=== PATIENT | female | born 1960 | race Caucasian/White ===

== ENCOUNTER 2022-07-18 12:11 | Inpatient (IN) | payer BC ==
[~2022-07-18] VITALS: Ht 160 cm; Wt 60.0 kg
[2022-07-18] MEDS ORDERED: normal saline 1000ML IV soln IVB ONE (12:50)
[2022-07-18 13:12] LABS: BASOPHILS % (AUTO) 0.3 % (0-1); EOSINOPHILS % (AUTO) 0.1 % (0-6); HEMATOCRIT 33.1 % (35.0-45.0); HEMOGLOBIN 10.7 g/dl (12.0-16.0); LYMPHOCYTES # (AUTO) 0.5 X10'3 (1.1-4.8); LYMPHOCYTES % (AUTO) 4.6 % (21-51); MEAN CORPUSCULAR HEMOGLOBIN 31.4 PG (27.0-31.0); MEAN CORPUSCULAR HGB CONC 32.3 g/dL (33.0-36.5); MEAN CORPUSCULAR VOLUME 97.3 FL (78-98); MEAN PLATELET VOLUME 8.4 FL (7.4-10.4); MONOCYTES # (AUTO) 0.7 X10'3 (0-0.9); NEUTROPHILS # (AUTO) 10.7 X10'3 (1.8-7.7); PLATELET COUNT 227 X10'3 (140-440); RED CELL DISTRIBUTION WIDTH 13.6 % (11.5-14.5)
[2022-07-18 13:29] LABS: ALANINE AMINOTRANSFERASE 22 U/L (12-78); ALBUMIN 3.1 G/DL (3.4-5.0); ALBUMIN/GLOBULIN RATIO 1.1 (1.1-1.5); ALKALINE PHOSPHATASE 97 IU/L (46-116); ANION GAP 18 (8-16); ASPARTATE AMINO TRANSFERASE 18 U/L (10-37); BILIRUBIN,TOTAL 0.6 MG/DL (0.1-1.0); BLOOD UREA NITROGEN 45 MG/DL (7-18); CALCIUM 8.6 MG/DL (8.5-10.1); CHLORIDE 93 MMOL/L (99-107); CREATININE 1.55 MG/DL (0.40-0.90); ETHANOL < 0.010 GM/DL (0.0-0.010); MAGNESIUM 2.2 MG/DL (1.5-2.4); PHOSPHORUS 6.3 MG/DL (2.3-4.5); POTASSIUM 4.4 MMOL/L (3.5-5.1); SODIUM 132 MMOL/L (135-145); TOTAL CARBON DIOXIDE 21.5 MMOL/L (24-32); eGFR 34 ML/MIN
[2022-07-18 13:36] LABS: GLUCOSE 736 MG/DL (70-104)
[2022-07-18] MEDS ORDERED: insulin regular, human 10 units/0.1 ml syringe IV ONE (13:40)
[2022-07-18] MEDS ORDERED: sodium bicarbonate (8.4%) inj. 100 MEQ in dextrose 5% water 500ml 500 ML IV PRN ×2 (13:40→16:30)
[2022-07-18] MEDS ORDERED: Insulin Reg/NS 100units/100mL 100 ML IV SCH ×2 (13:40→16:30)
[2022-07-18] MEDS ORDERED: insulin regular, human U-100 3ml vial - multi-dose IV PRN ×2 (13:40→16:30)
[2022-07-18] MEDS ORDERED: sodium phosphate inj. 15 MMOL in dextrose 5%-water 250 ML IV PRN ×2 (13:40→16:30)
[2022-07-18] MEDS ORDERED: potassium Cl 40MEQ/1/2NS 520ml 520 ML IV PRN ×5 (13:40→16:30)
[2022-07-18] MEDS ORDERED: potassium CL 20mEq in D5-1/2NS 1,000 ML IV PRN ×2 (13:40→16:30)
[2022-07-18] MEDS ORDERED: Neutra Phos packet PO PRN ×2 (13:40→16:30)
[2022-07-18] MEDS ORDERED: sodium bicarbonate (8.4%) inj. 50 MEQ in dextrose 5% water 500ml 250 ML IV PRN ×2 (13:40→16:30)
[2022-07-18] MEDS ORDERED: potassium Cl 20 mEq SR tablet PO PRN ×6 (13:40→16:30)
[2022-07-18] MEDS ORDERED: sodium phosphate inj. 30 MMOL in dextrose 5%-water 250 ML IV PRN ×2 (13:40→16:30)
[2022-07-18] MEDS: normal saline 1000ml 1,000 ML IV SCH ×2 (13:55→17:17)
[2022-07-18 14:50] LABS: CLARITY,URINE CLEAR (Clear); GLUCOSE, URINE >=1000 mg/dl (Neg); KETONES,URINE 40 mg/dl (Neg); LEUKOCYTE ESTERASE ,URINE NEGATIVE (Neg); NITRITES, URINE NEGATIVE (Neg); OCCULT BLOOD,URINE TRACE-INTACT (Neg); PH,URINE 5.5 (4.8-8.0); PROTEIN,URINE NEGATIVE (Neg); UA COLLECTION TYPE STRAIGHT CATH; UROBILINOGEN,URINE 0.2 E.U/dL (0.2-1.0)
[2022-07-18 14:51] LABS: COLOR,URINE STRAW (Yellow)
[2022-07-18 14:56] LABS: BACTERIA,URINE NONE SEEN /HPF (Neg); SQUAMOUS EPITHELIAL CELL,UR FEW /LPF (FEW); WBC,URINE 0-4 /HPF (0-4)
[2022-07-18 15:01] LABS: ABG BASE EXCESS -10.8 mmol/L (-2.0-2.0); ABG HCO3 14.4 mmol/L (22.0-26.0); ABG OXYGEN SATURATION 95.1 % (94-97); ABG PCO2 (T) 30.9 mmHg (32.0-45.0); ABG PO2 (T) 93.6 mmHg (75.0-100.0); FCOHb 0.7 % (0.0-3.9); FMetHb 0.2 % (0.0-1.5); FO2Hb 94.2 % (94-97); PATIENT TEMPERATURE 37.7; TOTAL HEMOGLOBIN 11.3 G/dl (12.0-16.0)
[2022-07-18] MEDS ORDERED: normal saline 1000ml 1,000 ML IV ONE (15:10)
[2022-07-18 15:12] LABS: URINE AMPHETAMINE SCREEN NEGATIVE (Neg); URINE BARBITUATE SCREEN NEGATIVE (Neg); URINE BENZODIAZEPINES SCREEN NEGATIVE (Neg); URINE CANNABINOID SCREEN NEGATIVE (Neg); URINE COCAINE SCREEN NEGATIVE (Neg); URINE METHADONE SCREEN NEGATIVE (Neg); URINE OPIATE SCREEN NEGATIVE (Neg); URINE PHENCYCLIDINE SCREEN NEGATIVE (Neg)
[2022-07-18] MEDS ORDERED: magnesium 4gm in 100ml NS 100 ML IV PRN (16:30)
[2022-07-18] MEDS ORDERED: acetaminophen 650mg rectal suppository RC PRN (16:30)
[2022-07-18] MEDS ORDERED: morphine 2 MG/ML inj. syringe IV PRN ×2 (16:30)
[2022-07-18] MEDS ORDERED: normal saline 1000ml 1,000 ML IV SCH (16:30)
[2022-07-18] MEDS ORDERED: magnesium hydroxide 30ml (MOM) UD suspension PO PRN (16:30)
[2022-07-18] MEDS ORDERED: mag hydrox/Alum hydrox/simeth 30ml oral suspension PO PRN (16:30)
[2022-07-18] MEDS ORDERED: magnesium Cl slow-release 64mg tablet PO PRN (16:30)
[2022-07-18] MEDS ORDERED: ondansetron 4mg rapidly disintigrating tab PO PRN (16:30)
[2022-07-18] MEDS ORDERED: CefTRIAXone 2gm/D5W 50ml BAG 50 ML IV ONE (16:30)
[2022-07-18] MEDS ORDERED: ondansetron/PF 4mg/2ml inj IV PRN (16:30)
[2022-07-18] MEDS ORDERED: HYDROcodone/acetaminophen 5mg/325mg tablet PO PRN (16:30)
[2022-07-18] MEDS ORDERED: HYDROcodone/acetaminophen 10/325mg tab PO PRN (16:30)
[2022-07-18] MEDS ORDERED: acetaminophen 325mg tablet PO PRN ×2 (16:30)
[2022-07-18 16:51] LABS: ALBUMIN 2.7 G/DL (3.4-5.0); ANION GAP 17 (8-16); BLOOD UREA NITROGEN 44 MG/DL (7-18); CALCIUM 7.6 MG/DL (8.5-10.1); CHLORIDE 105 MMOL/L (99-107); CREATININE 1.42 MG/DL (0.40-0.90); GLUCOSE 444 MG/DL (70-104); PHOSPHORUS 3.6 MG/DL (2.3-4.5); SODIUM 140 MMOL/L (135-145); TOTAL CARBON DIOXIDE 18.4 MMOL/L (24-32); eGFR 38 ML/MIN
[2022-07-18 16:53] LABS: POTASSIUM 2.9 MMOL/L (3.5-5.1)
--- NOTE | 2022-07-18 16:55 | NUR ---
Pharmacist called for K 40meq in 1/2 NS
--- NOTE | 2022-07-18 17:43 | NUR ---
Dez (Ruddy) made aware of pt's status and plan to admit.
[2022-07-18] MEDS ORDERED: K and/or MAG REPLACEMENT MC SCH ×2 (20:00)
[2022-07-18] MEDS: K and/or MAG REPLACEMENT MC SCH (20:00)
[2022-07-18] MEDS ORDERED: temazepam 15mg capsule PO PRN (21:00)
[2022-07-18] MEDS: potassium CL 20mEq in D5-1/2NS 1,000 ML IV SCH (22:07)
[2022-07-18] MEDS: docusate sod 100mg capsule PO SCH (22:08)
[2022-07-18] MEDS: heparin, porcine 5000 units/ml vial SQ SCH (22:08)
[2022-07-18 22:44] LABS: ALBUMIN 2.7 G/DL (3.4-5.0); ANION GAP 11 (8-16); BLOOD UREA NITROGEN 41 MG/DL (7-18); CALCIUM 7.6 MG/DL (8.5-10.1); CHLORIDE 108 MMOL/L (99-107); CREATININE 1.05 MG/DL (0.40-0.90); GLUCOSE 213 MG/DL (70-104); POTASSIUM 3.6 MMOL/L (3.5-5.1); SODIUM 139 MMOL/L (135-145); TOTAL CARBON DIOXIDE 20.1 MMOL/L (24-32); eGFR 53 ML/MIN
[2022-07-19] MEDS: potassium CL 20mEq in D5-1/2NS 1,000 ML IV SCH ×4 (01:01→14:15)
--- NOTE | 2022-07-19 01:30 | NUR ---
NOTIFIED DR CHOWDARY OF PT HYPOTENSION 96/40-94/43 WITH MAPS AVERAGING 55 FOR LAST 2 30MIN BLOOD PRESSURE CHECK AND NO URINE OUTPUT THIS SHIFT. REC VERBAL ORDER TO ADMINISTER 1L NS
[2022-07-19] MEDS ORDERED: normal saline 1000ml 1,000 ML IV ONE (01:50)
[2022-07-19 02:13] LABS: BASOPHILS % (AUTO) 0.4 % (0-1); EOSINOPHILS % (AUTO) 0 % (0-6); HEMATOCRIT 28.9 % (35.0-45.0); HEMOGLOBIN 9.4 g/dl (12.0-16.0); LYMPHOCYTES # (AUTO) 1.3 X10'3 (1.1-4.8); MEAN CORPUSCULAR HEMOGLOBIN 31.2 PG (27.0-31.0); MEAN CORPUSCULAR HGB CONC 32.7 g/dL (33.0-36.5); MEAN CORPUSCULAR VOLUME 95.4 FL (78-98); MEAN PLATELET VOLUME 7.5 FL (7.4-10.4); MONOCYTES # (AUTO) 1.1 X10'3 (0-0.9); MONOCYTES % (AUTO) 9.3 % (2-12); NEUTROPHILS # (AUTO) 9.3 X10'3 (1.8-7.7); NEUTROPHILS % (AUTO) 79.3 % (42-75); PLATELET COUNT 198 X10'3 (140-440); RED BLOOD COUNT 3.03 X10'6 (4.20-5.60); RED CELL DISTRIBUTION WIDTH 13.4 % (11.5-14.5); WHITE BLOOD COUNT 11.8 X10'3 (4.5-11.0)
[2022-07-19 02:49] LABS: ALANINE AMINOTRANSFERASE 23 U/L (12-78); ALBUMIN 2.5 G/DL (3.4-5.0); ALKALINE PHOSPHATASE 75 IU/L (46-116); ANION GAP 10 (8-16); ASPARTATE AMINO TRANSFERASE 20 U/L (10-37); BILIRUBIN,TOTAL 0.2 MG/DL (0.1-1.0); BLOOD UREA NITROGEN 38 MG/DL (7-18); BUN/CREATININE RATIO 42.2 (6.6-38.0); CALCIUM 7.3 MG/DL (8.5-10.1); CHLORIDE 109 MMOL/L (99-107); GLUCOSE 142 MG/DL (70-104); MAGNESIUM 1.7 MG/DL (1.5-2.4); PHOSPHORUS 2.2 MG/DL (2.3-4.5); POTASSIUM 3.5 MMOL/L (3.5-5.1); SODIUM 139 MMOL/L (135-145); TOTAL CARBON DIOXIDE 19.9 MMOL/L (24-32); eGFR 64 ML/MIN
--- NOTE | 2022-07-19 03:27 | NUR ---
NOTIFIED DR VELASCO OF PHOS LEVEL, URINARY RETENTION WITH STRAIGHT CATH OUT 800ML, ACCU CHECK 93. REC TELEPHONE ORDER TO DECREASE DKA INSULIN PROTOCAL DRIP TO 4UNIT/HR AND OK TO ADMINISTER AND START NUTRA PHOS PACKETS DISPITE NPO ORDER
--- NOTE | 2022-07-19 05:37 | NUR ---
NOTIFIED DR VELASCO OF ACCU CHECK OF 83 AND REC VERBAL ORDER TO DECREASE INSULIN DRIP DOWN TO 3UNIT/HR. DR VELASCO ALSO NOTIFIED OF PT BLOOD PRESSURE MAPS AVERAGING 60 POST NS BOLUS. NO NEW ORDERS REC.
--- NOTE | 2022-07-19 06:16 | NUR ---
notified dr lyons of accu check of 70, rec tele order to discontinue insulin infusion and decrease D5 1/2 NS with 20KCL down to 125ml/hr
[2022-07-19] MEDS: docusate sod 100mg capsule PO SCH (08:00)
[2022-07-19] MEDS: K and/or MAG REPLACEMENT MC SCH (08:00)
[2022-07-19] MEDS ORDERED: CefTRIAXone/D5W-Rocephin 1gm 50 ML IV SCH (08:00)
[2022-07-19] MEDS: heparin, porcine 5000 units/ml vial SQ SCH (08:25)
[2022-07-19] MEDS ORDERED: insulin Lispro (HumaLOG) vial - multi-dose SQ SCH (12:50)
[2022-07-19] MEDS ORDERED: glucagon, human recombinant 1mg kit SUBCUT PRN (12:50)
[2022-07-19] MEDS ORDERED: dextrose 50%-water 50ml dispensing syringe IV PRN ×2 (12:50)
[2022-07-19] MEDS ORDERED: insulin glargine (Lantus) pen - multi-dose SQ ONE (12:50)
[2022-07-19] MEDS ORDERED: DEXTROSE 15 GM of carb/4 tabs (each vial/BOTTLE has 4 tablets) PO PRN ×2 (12:50)
[2022-07-19] MEDS ORDERED: MESSAGE TO PHARMACY PO ONE (12:50)
[2022-07-19 15:12] LABS: HEMOGLOBIN A1C 9.3 % (4.5-6.2)
[2022-07-19 16:41] VITALS: BP 118/61
[2022-07-19] MEDS ORDERED: insulin glargine (Lantus) pen - multi-dose SQ SCH ×2 (21:00)
== END 2022-07-19 16:42 | disposition home or self-care (01) | DRG 637 ==
LOC: ER 12:12 → ED HOLD 16:31 → EDBD 16:31
PROVIDERS: ADMIT Family Medicine; ATTEND Family Medicine
DX: E11.10 Type 2 diabetes mellitus with ketoacidosis without coma (principal); G93.41 Metabolic encephalopathy; E87.1 Hypo-osmolality and hyponatremia; N17.9 Acute kidney failure, unspecified; Z20.822 Contact with and (suspected) exposure to COVID-19; E03.9 Hypothyroidism, unspecified; E78.5 Hyperlipidemia, unspecified; E83.39 Other disorders of phosphorus metabolism; K52.9 Noninfective gastroenteritis and colitis, unspecified; Z79.4 Long term (current) use of insulin
CPT/HCPCS: 36415; 36600; 70450; 71045; 71250; 74176; 80048; 80053; 80305; 80320; 81001; 82140; 82803; 82948; 83036; 83605; 83735; 84100; 84145; 84484; 85018; 85025; 87040; 87502; 87503; 87811; 93005; 96361; 96365; 96376; 99291; G0378; J0696; J1644; J1815; J3480; J7030; J7042